=== PATIENT | female | born 1950 | race Native Hawaiian/Other Pacific Islander ===

== ENCOUNTER 2019-11-19 16:15 | Emergency (ER) | payer OTHER ==
[~2019-11-19] VITALS: Ht 168.9 cm; Wt 71.3 kg
[2019-11-19 16:15] VITALS: BP 148/83; TEMP 99.1
[2019-11-19 16:49] LABS: PLATELET COUNT 96 K/uL (152-353)
[2019-11-19] MEDS ORDERED: ASA LOW DOSE81 MG PO (18:25)
[2019-11-19] MEDS ORDERED: ALLERCLEAR10 MG PO (18:26)
[2019-11-19] MEDS ORDERED: LIPITOR40 MG PO (18:26)
[2019-11-19] MEDS ORDERED: DIVA500T2 PO (18:27)
[2019-11-19] MEDS ORDERED: FLONASE SE27.5 MCG/S NAS (18:28)
[2019-11-19] MEDS ORDERED: DIVA125C PO (18:28)
[2019-11-19] MEDS ORDERED: TYLENOL325 MG PO (18:29)
== END 2019-11-19 17:53 | disposition other institution (70) ==
LOC: ED 16:20
PROVIDERS: Emergency Medicine
DX: Z04.6 Encounter for general psychiatric examination, requested by authority (principal); F28 Other psychotic disorder not due to a substance or known physiological condition; F91.8 Other conduct disorders; Z11.59 Encounter for screening for other viral diseases
CPT/HCPCS: 80053; 85027; 87635; 93005; 99283; G2023; U00003

== ENCOUNTER 2020-12-16 19:25 | Emergency (ER) | payer OTHER ==
[~2020-12-16] VITALS: Ht 165.1 cm; Wt 71.2 kg
[2020-12-16 19:25] VITALS: BP 152/81; TEMP 98.7
[~2020-12-16 19:25] MED LIST: ALLERCLEAR10 MG PO; ASA LOW DOSE81 MG PO; BENZ1TAB43 PO; DIVA125C PO; DIVA500T2 PO; FLONASE SE27.5 MCG/S NAS; HALO5TAB10 PO; LIPITOR40 MG PO; METF500T PO; TYLENOL325 MG PO
[2020-12-16 19:49] LABS: PLATELET COUNT 156 K/uL (152-353)
[2020-12-16 19:51] LABS: POTASSIUM 4.4 mmol/L (3.6-5.2)
[2020-12-16] MEDS ORDERED: ASPIRIN LOW DOS81 MG PO ×2 (22:46→22:52)
[2020-12-16] MEDS ORDERED: ATOR20TA2 PO (22:47)
[2020-12-16] MEDS ORDERED: LIPITOR40 MG PO (22:52)
[2020-12-16] MEDS ORDERED: BENZTROPINE0.5 MG PO (22:53)
[2020-12-16] MEDS ORDERED: DIVALPROEX500 M1 PO (22:54)
[2020-12-16] MEDS ORDERED: GUAI200S10 PO (22:56)
[2020-12-16] MEDS ORDERED: DONEPEZIL HYDRO10 M1 PO (22:57)
[2020-12-16] MEDS ORDERED: CLARITIN10 M1 PO (22:58)
[2020-12-16] MEDS ORDERED: MAGNESIUM OXID400 M3 PO (22:58)
[2020-12-16] MEDS ORDERED: MELATONIN10 MG PO (22:59)
[2020-12-16] MEDS ORDERED: FORTAMET500 MG PO (23:00)
[2020-12-16] MEDS ORDERED: MILK OF MA400 MG/5 M PO (23:02)
== END 2020-12-16 21:10 | disposition still patient (30) ==
LOC: ED 19:25
PROVIDERS: Hospitalist
DX: F25.8 Other schizoaffective disorders (principal); F69 Unspecified disorder of adult personality and behavior; Z11.52 Encounter for screening for COVID-19; Z04.6 Encounter for general psychiatric examination, requested by authority
CPT/HCPCS: 36415; 80053; 80164; 81000; 85027; 87635; 93005; 96372; 99283; J1815; U0003

== ENCOUNTER 2021-09-23 19:46 | Emergency (ER) | payer OTHER ==
[~2021-09-23] VITALS: Ht 167.6 cm; Wt 71.2 kg
[~2021-09-23 19:46] MED LIST changes: +ASPIRIN LOW DOS81 MG PO; +ATOR20TA2 PO; +BENZTROPINE0.5 MG PO; +CHOL100034 PO; +CLARITIN10 M1 PO; +DIVALPROEX500 M1 PO; +DONEPEZIL HYDRO10 M1 PO; +FORTAMET500 MG PO; +GUAI200S10 PO; +MAGNESIUM OXID400 M3 PO; +MELATONIN10 MG PO; +MILK OF MA400 MG/5 M PO; +NYST100016 EX; +OLANZAPINE10 MG PO; +PANTOPRAZOLE 40MG TA PO
[2021-09-23 20:01] VITALS: BP 135/74
[2021-09-23 20:04] VITALS: TEMP 98.5
[2021-09-23 20:30] LABS: PLATELET COUNT 189 K/uL (152-353)
[2021-09-23 20:42] LABS: POTASSIUM 4.3 mmol/L (3.6-5.2)
[2021-09-23] MEDS ORDERED: BUSPIRONE HYDROC5 MG PO (23:16)
[2021-09-23] MEDS ORDERED: HYDROCORTISONE12 TOP (23:21)
[2021-09-23] MEDS ORDERED: MAGOX 400400 M1 PO (23:23)
[2021-09-23] MEDS ORDERED: METFORMIN HYDR850 MG PO (23:35)
[2021-09-23] MEDS ORDERED: DIVALPROEX500 M1 PO (23:37)
[2021-09-23] MEDS ORDERED: OLANZAPINE15 MG PO (23:46)
[2021-09-26] MEDS ORDERED: BENZTROPINE0.5 MG PO (09:04)
[2021-09-26] MEDS ORDERED: BUSPIRONE HYDROC5 MG PO (09:07)
== END 2021-09-23 21:25 | disposition still patient (30) ==
LOC: ED 19:46
PROVIDERS: Emergency Medicine
DX: G30.8 Other Alzheimer's disease (principal); F02.81 Dementia in other diseases classified elsewhere, unspecified severity, with behavioral disturbance; Z91.83 Wandering in diseases classified elsewhere; Z11.52 Encounter for screening for COVID-19; Z04.6 Encounter for general psychiatric examination, requested by authority
CPT/HCPCS: 36415; 80053; 81000; 85027; 87635; 93005; 99283; U0003